=== PATIENT | male | born 1955 | race Caucasian/White ===

== ENCOUNTER 2019-03-06 18:09 | Inpatient (IN) | payer MEDICAID ==
[~2019-03-06] VITALS: Ht 175.3 cm; Wt 90.2 kg
[~2019-03-06 18:09] MED LIST: ARIP10TA8 PO; ASPI-825 PO; ATOR20TA86 PO; BUPR300T53 PO; HYDR25TA PO; LAMO100 PO; METF-960 PO; SERT50TA12 PO; VALS320T2 PO
[2019-03-06] MEDS ORDERED: ACAM333T7 PO (18:34)
[2019-03-06] MEDS ORDERED: GABA-531 PO (18:34)
[2019-03-06] MEDS ORDERED: CYAN500 PO (18:34)
[2019-03-06] MEDS ORDERED: AMLO-511 PO (18:34)
[2019-03-06] MEDS ORDERED: FAMO20 PO (18:34)
[2019-03-06] MEDS ORDERED: TERB250 PO (18:34)
[2019-03-06] MEDS ORDERED: NALT50TA6 PO (18:34)
[2019-03-06] MEDS ORDERED: BENZ1TAB10 PO (18:34)
[2019-03-06] MEDS ORDERED: DISU250 PO (18:34)
[2019-03-06 19:09] LABS: BASOPHILS % (AUTO) 0.9 % (0.0-2.0); EOSINOPHILS % (AUTO) 3.4 % (1.0-6.0); HEMATOCRIT 41.2 % (41-53); HEMOGLOBIN 13.9 g/dL (13.5-17.5); LYMPHOCYTES # (AUTO) 1.8 K/uL (1.0-4.8); LYMPHOCYTES % (AUTO) 27.5 % (22.0-44.0); MEAN CORPUSCULAR HEMOGLOBIN 32.9 pg (26.0-34.0); MEAN CORPUSCULAR HGB CONC 33.9 G/dL (31.0-37.0); MEAN CORPUSCULAR VOLUME 97 fL (80-100); MONOCYTES # (AUTO) 0.6 K/uL (0.1-1.0); MONOCYTES % (AUTO) 9.1 % (2.0-9.0); NEUTROPHILS # (AUTO) 3.9 K/uL (1.8-7.7); NEUTROPHILS % (AUTO) 59.1 % (40.0-70.0); PLATELET COUNT (AUTO) 291 K/uL (150-450); RED BLOOD CELL COUNT(AUTO) 4.24 MIL/uL (4.50-5.90); RED CELL DISTRIBUTION WIDTH 13.8 % (11.5-14.5)
[2019-03-06] MEDS ORDERED: AmLODIPine BESYLATE 5 MG TABLET PO ONE (19:15)
[2019-03-06 19:32] LABS: ANION GAP 9 mmol/L (8-16); CALCIUM, TOTAL 9.2 mg/dL (8.8-10.5); CARBON DIOXIDE 29 mmol/L (22-29); CHLORIDE 104 mmol/L (98-107); CREATININE 1.04 mg/dL (0.60-1.30); GLOMERULAR FILTR. RATE CALC > 60 mL/min (>60); GLUCOSE,RANDOM 126 mg/dL (70-110); POTASSIUM 3.9 mmol/L (3.5-5.1); SODIUM SERUM 142 mmol/L (136-145); UREA NITROGEN, BLOOD 20 mg/dL (7-18)
[2019-03-06 19:38] LABS: ALANINE AMINOTRANSFERASE 27 U/L (12-78); ALBUMIN 3.7 g/dL (3.4-5.0); ALKALINE PHOSPHATASE 104 U/L (46-116); ASPARTATE AMINOTRANSFERASE 24 U/L (15-37); BILIRUBIN,TOTAL 0.4 mg/dL (0.1-1.0); TOTAL PROTEIN, SERUM 7.8 g/dL (6.4-8.2)
[2019-03-06 20:03] LABS: AMPHET/METH SCREEN,URINE NEGATIVE (NEGATIVE); BARBITURATE SCREEN, URINE NEGATIVE (NEGATIVE); BENZODIAZEPINES SCREEN,URINE NEGATIVE (NEGATIVE); CANNABINOID SCREEN,URINE NEGATIVE (NEGATIVE); COCAINE SCREEN,URINE NEGATIVE (NEGATIVE); METHADONE SCREEN, URINE NEGATIVE (NEGATIVE); OPIATE SCREEN,URINE NEGATIVE (NEGATIVE)
[2019-03-06 20:04] LABS: PHENCYCLIDINE SCREEN,URINE NEGATIVE (NEGATIVE)
[2019-03-06] MEDS ORDERED: HALOPERIDOL 5 MG TABLET PO PRN (22:00)
[2019-03-06] MEDS ORDERED: ZOLPIDEM TARTRATE 10 MG TABLET PO PRN (22:00)
[2019-03-06] MEDS ORDERED: LORazepam 2 MG TABLET PO PRN (22:00)
[2019-03-07 02:32] VITALS: BP 151/95
[2019-03-07] MEDS ORDERED: PNEUMOCOCCAL VACCINE POLYVALENT 0.5 ML VIAL [PPSV23] IM ONE (04:15)
[2019-03-07 06:44] LABS: CHOL/HDL RATIO 4.2 (4.2-7.3)
[2019-03-07] MEDS ORDERED: BENZOCAINE/MENTHOL LOZENGE MM PRN (07:30)
[2019-03-07] MEDS ORDERED: MAG HYDROX/AL HYDROX/SIMETH ES 30 ML SUSPENSION UDCUP PO PRN (07:30)
[2019-03-07] MEDS ORDERED: LOPERAMIDE HCL 2 MG CAPSULE PO PRN (07:30)
[2019-03-07] MEDS ORDERED: CloNIDine HCL 0.1 MG TABLET PO PRN (07:30)
[2019-03-07] MEDS ORDERED: ALBUTEROL SULFATE HFA 90 MCG/PUFF 8 GM INHALER IH PRN (07:30)
[2019-03-07] MEDS ORDERED: PETROLATUM,WHITE 28 GM JELLY TP PRN (07:30)
[2019-03-07] MEDS ORDERED: ONDANSETRON HCL 4 MG TABLET PO PRN (07:30)
[2019-03-07] MEDS ORDERED: MAGNESIUM HYDROXIDE SUSPENSION 30 ML UDCUP PO PRN (07:30)
[2019-03-07] MEDS ORDERED: BACITRACIN 28.4 GM OINTMENT TP PRN (07:30)
[2019-03-07] MEDS ORDERED: ACETAMINOPHEN 325 MG TABLET PO PRN (07:30)
[2019-03-07 08:02] VITALS: BP 148/88
[2019-03-07] MEDS: BENZTROPINE MESYLATE 1 MG TABLET PO SCH (09:00)
[2019-03-07] MEDS: DOCUSATE SODIUM 100 MG CAPSULE PO SCH (09:00)
[2019-03-07] MEDS: OMEPRAZOLE 20 MG CAPSULE PO SCH (09:00)
[2019-03-07] MEDS: ARIPiprazole 10 MG TABLET PO SCH (09:00)
[2019-03-07] MEDS: SERTRALINE HCL 50 MG TABLET PO SCH (09:00)
[2019-03-07 16:45] VITALS: BP 154/90
[2019-03-07] MEDS: IBUPROFEN 600 MG TABLET PO PRN (16:47)
[2019-03-07] MEDS ORDERED: DEXTROSE 50%-WATER 25 GM/50 ML SYRINGE IVP PRN (22:15)
[2019-03-08 05:06] VITALS: BP 157/82
[2019-03-08 05:42] LABS: GLUCOMETER DEV NAME(LOC) 3E.I; GLUCOSE,POINT OF CARE 148 MG/DL (70-110)
[2019-03-08] MEDS: INSULIN LISPRO 100 UNITS/ML SQ PRN ×2 (06:39→17:32)
[2019-03-08] MEDS: OMEPRAZOLE 20 MG CAPSULE PO SCH (08:22)
[2019-03-08] MEDS: ARIPiprazole 10 MG TABLET PO SCH (08:23)
[2019-03-08] MEDS: DOCUSATE SODIUM 100 MG CAPSULE PO SCH (08:23)
[2019-03-08] MEDS: SERTRALINE HCL 50 MG TABLET PO SCH (08:23)
[2019-03-08 08:24] VITALS: BP 137/84
[2019-03-08] MEDS: IBUPROFEN 600 MG TABLET PO PRN (08:24)
[2019-03-08 09:09] VITALS: BP 137/84
[2019-03-08 09:24] VITALS: BP 136/86
[2019-03-08 11:08] LABS: GLUCOMETER DEV NAME(LOC) 3E.I; GLUCOSE,POINT OF CARE 136 MG/DL (70-110)
[2019-03-08 16:14] VITALS: BP 134/77
[2019-03-08] MEDS ORDERED: ARIP10TA8 PO (16:53)
[2019-03-08] MEDS ORDERED: SERT50TA12 PO (16:54)
[2019-03-08] MEDS ORDERED: DSS100 PO (16:56)
[2019-03-08] MEDS ORDERED: OMEP20 PO (16:56)
[2019-03-08 17:04] LABS: GLUCOMETER DEV NAME(LOC) 3E.I; GLUCOSE,POINT OF CARE 216 MG/DL (70-110)
== END 2019-03-08 17:46 | disposition home or self-care (01) | DRG 754 ==
LOC: EMS 18:09 → 3EI 23:49
PROVIDERS: ADMIT Psychiatry & Neurology Psychiatry; ATTEND Psychiatry & Neurology Psychiatry
DX: F32.9 Major depressive disorder, single episode, unspecified (principal); E11.9 Type 2 diabetes mellitus without complications; R45.851 Suicidal ideations; E78.00 Pure hypercholesterolemia, unspecified; F41.9 Anxiety disorder, unspecified; G47.00 Insomnia, unspecified; I10 Essential (primary) hypertension; K59.00 Constipation, unspecified; Z56.0 Unemployment, unspecified
CPT/HCPCS: 83036; 93971

== ENCOUNTER 2020-02-27 05:23 | Emergency (ER) | payer MEDICAID ==
[~2020-02-27] VITALS: Ht 175.3 cm; Wt 90.0 kg
[~2020-02-27 05:23] MED LIST changes: -ASPI-825 PO; -ATOR20TA86 PO; -BUPR300T53 PO; +DSS100 PO; -HYDR25TA PO; -LAMO100 PO; -METF-960 PO; +OMEP20 PO; -VALS320T2 PO
[2020-02-27 06:10] LABS: GLUCOSE,POINT OF CARE 147 MG/DL (70-110)
[2020-02-27 06:15] LABS: EOSINOPHILS % (AUTO) 4.5 % (1.0-6.0); HEMATOCRIT 36.6 % (41-53); HEMOGLOBIN 12.6 g/dL (13.5-17.5); LYMPHOCYTES # (AUTO) 2.6 K/uL (1.0-4.8); LYMPHOCYTES % (AUTO) 51.1 % (22.0-44.0); MEAN CORPUSCULAR HEMOGLOBIN 33.3 pg (26.0-34.0); MEAN CORPUSCULAR HGB CONC 34.4 G/dL (31.0-37.0); MEAN CORPUSCULAR VOLUME 97 fL (80-100); MONOCYTES # (AUTO) 0.4 K/uL (0.1-1.0); MONOCYTES % (AUTO) 8.5 % (2.0-9.0); NEUTROPHILS # (AUTO) 1.7 K/uL (1.8-7.7); NEUTROPHILS % (AUTO) 33.9 % (40.0-70.0); PLATELET COUNT (AUTO) 268 K/uL (150-450); RED BLOOD CELL COUNT(AUTO) 3.78 MIL/uL (4.50-5.90); RED CELL DISTRIBUTION WIDTH 13.6 % (11.5-14.5)
[2020-02-27 06:21] LABS: ANION GAP 5 mmol/L (8-16); CALCIUM, TOTAL 8.4 mg/dL (8.8-10.5); CARBON DIOXIDE 32 mmol/L (22-29); CHLORIDE 109 mmol/L (98-107); CREATININE 0.74 mg/dL (0.60-1.30); GLOMERULAR FILTR. RATE CALC > 60 mL/min (>60); GLUCOSE,RANDOM 147 mg/dL (70-110); POTASSIUM 3.7 mmol/L (3.5-5.1); SODIUM SERUM 146 mmol/L (136-145); UREA NITROGEN, BLOOD 14 mg/dL (7-18)
[2020-02-27 06:26] LABS: ALANINE AMINOTRANSFERASE 26 U/L (12-78); ALBUMIN 3.5 g/dL (3.4-5.0); ALKALINE PHOSPHATASE 97 U/L (46-116); ASPARTATE AMINOTRANSFERASE 16 U/L (15-37); BILIRUBIN,TOTAL 0.2 mg/dL (0.1-1.0)
[2020-02-27 09:40] LABS: AMPHET/METH SCREEN,URINE NEGATIVE (NEGATIVE); BARBITURATE SCREEN, URINE NEGATIVE (NEGATIVE); BENZODIAZEPINES SCREEN,URINE NEGATIVE (NEGATIVE); CANNABINOID SCREEN,URINE NEGATIVE (NEGATIVE); COCAINE SCREEN,URINE NEGATIVE (NEGATIVE); METHADONE SCREEN, URINE NEGATIVE (NEGATIVE); OPIATE SCREEN,URINE NEGATIVE (NEGATIVE)
[2020-02-27 09:52] LABS: PHENCYCLIDINE SCREEN,URINE NEGATIVE (NEGATIVE)
[2020-02-27 10:34] VITALS: BP 142/87
== END 2020-02-27 12:04 | disposition home or self-care (01) ==
LOC: EMS 05:23
DX: F32.9 Major depressive disorder, single episode, unspecified (principal); F10.10 Alcohol abuse, uncomplicated; E11.9 Type 2 diabetes mellitus without complications; F17.210 Nicotine dependence, cigarettes, uncomplicated; Y90.7 Blood alcohol level of 200-239 mg/100 ml
CPT/HCPCS: 36415; 80053; 80307; 82962; 85025; 99285; G0480

== ENCOUNTER 2021-02-01 00:31 | Emergency (ER) | payer MEDICAID, MEDICARE ==
[~2021-02-01] VITALS: Ht 175.3 cm; Wt 90.9 kg
[~2021-02-01 00:31] MED LIST changes: +ARIP10TA38 PO; -ARIP10TA8 PO; +SERT-158 PO; -SERT50TA12 PO
[2021-02-01 01:12] LABS: COVID AG,FIA SOURCE NASOPHARYNGEAL
[2021-02-01 01:30] LABS: BASOPHILS % (AUTO) 0.9 % (0.0-2.0); EOSINOPHILS % (AUTO) 3.3 % (1.0-6.0); HEMATOCRIT 43.3 % (41-53); HEMOGLOBIN 14.9 g/dL (13.5-17.5); LYMPHOCYTES # (AUTO) 3.3 K/uL (1.0-4.8); LYMPHOCYTES % (AUTO) 52.4 % (22.0-44.0); MEAN CORPUSCULAR HEMOGLOBIN 33.7 pg (26.0-34.0); MEAN CORPUSCULAR HGB CONC 34.3 G/dL (31.0-37.0); MEAN CORPUSCULAR VOLUME 98 fL (80-100); MONOCYTES # (AUTO) 0.4 K/uL (0.1-1.0); NEUTROPHILS # (AUTO) 2.3 K/uL (1.8-7.7); NEUTROPHILS % (AUTO) 36.4 % (40.0-70.0); PLATELET COUNT (AUTO) 258 K/uL (150-450); RED BLOOD CELL COUNT(AUTO) 4.42 MIL/uL (4.50-5.90); RED CELL DISTRIBUTION WIDTH 13.6 % (11.5-14.5)
[2021-02-01 01:39] LABS: ANION GAP 11 mmol/L (8-16); CALCIUM, TOTAL 8.9 mg/dL (8.8-10.5); CARBON DIOXIDE 28 mmol/L (22-29); CHLORIDE 103 mmol/L (98-107); CREATININE 0.96 mg/dL (0.60-1.30); GLOMERULAR FILTR. RATE CALC > 60 mL/min (>60); GLUCOSE,RANDOM 161 mg/dL (70-110); POTASSIUM 3.7 mmol/L (3.5-5.1); SODIUM SERUM 142 mmol/L (136-145); UREA NITROGEN, BLOOD 14 mg/dL (7-18)
[2021-02-01 01:45] LABS: ALANINE AMINOTRANSFERASE 36 U/L (12-78); ALBUMIN 3.8 g/dL (3.4-5.0); ALKALINE PHOSPHATASE 132 U/L (46-116); ASPARTATE AMINOTRANSFERASE 28 U/L (15-37); BILIRUBIN,TOTAL 0.4 mg/dL (0.1-1.0); TOTAL PROTEIN, SERUM 7.6 g/dL (6.4-8.2)
[2021-02-01 07:30] VITALS: BP 128/84
== END 2021-02-01 08:01 | disposition home or self-care (01) ==
LOC: EMS 00:33
DX: R45.851 Suicidal ideations (principal); F10.129 Alcohol abuse with intoxication, unspecified; E11.9 Type 2 diabetes mellitus without complications; F32.9 Major depressive disorder, single episode, unspecified; Z20.822 Contact with and (suspected) exposure to COVID-19; Y90.7 Blood alcohol level of 200-239 mg/100 ml
CPT/HCPCS: 36415; 80053; 82962; 85025; 87426; 99283; G0480

== ENCOUNTER 2023-01-29 01:10 | Emergency (ER) | payer MEDICARE, MEDICAID ==
[~2023-01-29] VITALS: Ht 177.8 cm; Wt 95.5 kg
[2023-01-29 01:26] VITALS: BP 142/89
[2023-01-29 01:43] LABS: BASOPHILS % (AUTO) 0.8 % (0.0-2.0); EOSINOPHILS % (AUTO) 0.7 % (1.0-6.0); HEMATOCRIT 41.6 % (41-53); HEMOGLOBIN 14.1 g/dL (13.5-17.5); LYMPHOCYTES # (AUTO) 2.1 K/uL (1.0-4.8); LYMPHOCYTES % (AUTO) 24.8 % (22.0-44.0); MEAN CORPUSCULAR HEMOGLOBIN 32.9 pg (26.0-34.0); MEAN CORPUSCULAR VOLUME 97 fL (80-100); MONOCYTES # (AUTO) 0.6 K/uL (0.1-1.0); MONOCYTES % (AUTO) 7.3 % (2.0-9.0); NEUTROPHILS # (AUTO) 5.6 K/uL (1.8-7.7); NEUTROPHILS % (AUTO) 66.4 % (40.0-70.0); PLATELET COUNT (AUTO) 314 K/uL (150-450); RED CELL DISTRIBUTION WIDTH 14.2 % (11.5-14.5)
[2023-01-29 01:52] LABS: ANION GAP 10 mmol/L (8-16); CALCIUM, TOTAL 9.2 mg/dL (8.8-10.5); CARBON DIOXIDE 29 mmol/L (22-29); CHLORIDE 102 mmol/L (98-107); GLOMERULAR FILTR. RATE CALC > 60 mL/min (>60); GLUCOSE,RANDOM 137 mg/dL (70-110); POTASSIUM 3.5 mmol/L (3.5-5.1); SODIUM SERUM 141 mmol/L (136-145); UREA NITROGEN, BLOOD 17 mg/dL (7-18)
[2023-01-29 01:59] LABS: ALANINE AMINOTRANSFERASE 46 U/L (12-78); ALBUMIN 3.9 g/dL (3.4-5.0); ALKALINE PHOSPHATASE 124 U/L (46-116); ASPARTATE AMINOTRANSFERASE 36 U/L (15-37); BILIRUBIN,TOTAL 0.9 mg/dL (0.1-1.0); TOTAL PROTEIN, SERUM 7.8 g/dL (6.4-8.2)
[2023-01-29 03:23] LABS: AMPHET/METH SCREEN,URINE NEGATIVE (NEGATIVE); BARBITURATE SCREEN, URINE NEGATIVE (NEGATIVE); BENZODIAZEPINES SCREEN,URINE NEGATIVE (NEGATIVE); CANNABINOID SCREEN,URINE NEGATIVE (NEGATIVE); COCAINE SCREEN,URINE NEGATIVE (NEGATIVE); METHADONE SCREEN, URINE NEGATIVE (NEGATIVE); OPIATE SCREEN,URINE NEGATIVE (NEGATIVE); PHENCYCLIDINE SCREEN,URINE NEGATIVE (NEGATIVE)
== END 2023-01-29 02:59 | disposition short-term general hospital (02) ==
LOC: EMS 01:14
DX: F32.A Depression, unspecified (principal); E11.9 Type 2 diabetes mellitus without complications; F17.210 Nicotine dependence, cigarettes, uncomplicated; Z91.013 Allergy to seafood
CPT/HCPCS: 99285; 80053; 85025; 36415; 80307 ×2; G0480

== ENCOUNTER 2023-02-28 19:12 | Inpatient (IN) | payer MEDICARE, MEDICAID ==
[~2023-02-28] VITALS: Ht 175.3 cm; Wt 76.5 kg
[2023-02-28] MEDS ORDERED: LAMO25TA25 PO (19:23)
[2023-02-28 22:27] LABS: BASOPHILS % (AUTO) 0.9 % (0.0-2.0); EOSINOPHILS % (AUTO) 0.3 % (1.0-6.0); HEMATOCRIT 40.6 % (41-53); HEMOGLOBIN 13.6 g/dL (13.5-17.5); LYMPHOCYTES # (AUTO) 1.7 K/uL (1.0-4.8); LYMPHOCYTES % (AUTO) 23.7 % (22.0-44.0); MEAN CORPUSCULAR HGB CONC 33.4 G/dL (31.0-37.0); MEAN CORPUSCULAR VOLUME 96 fL (80-100); MONOCYTES # (AUTO) 0.8 K/uL (0.1-1.0); MONOCYTES % (AUTO) 10.8 % (2.0-9.0); NEUTROPHILS # (AUTO) 4.5 K/uL (1.8-7.7); NEUTROPHILS % (AUTO) 64.3 % (40.0-70.0); PLATELET COUNT (AUTO) 284 K/uL (150-450); RED BLOOD CELL COUNT(AUTO) 4.23 MIL/uL (4.50-5.90); RED CELL DISTRIBUTION WIDTH 14.1 % (11.5-14.5)
[2023-02-28 23:06] LABS: ANION GAP 10 mmol/L (8-16); CALCIUM, TOTAL 8.6 mg/dL (8.8-10.5); CARBON DIOXIDE 28 mmol/L (22-29); CHLORIDE 100 mmol/L (98-107); CREATININE 0.84 mg/dL (0.60-1.30); GLOMERULAR FILTR. RATE CALC > 60 mL/min (>60); GLUCOSE,RANDOM 165 mg/dL (70-110); POTASSIUM 3.4 mmol/L (3.5-5.1); SODIUM SERUM 138 mmol/L (136-145)
[2023-02-28 23:10] LABS: AMPHET/METH SCREEN,URINE NEGATIVE (NEGATIVE); BARBITURATE SCREEN, URINE NEGATIVE (NEGATIVE); BENZODIAZEPINES SCREEN,URINE NEGATIVE (NEGATIVE); CANNABINOID SCREEN,URINE NEGATIVE (NEGATIVE); COCAINE SCREEN,URINE NEGATIVE (NEGATIVE); METHADONE SCREEN, URINE NEGATIVE (NEGATIVE); OPIATE SCREEN,URINE NEGATIVE (NEGATIVE); PHENCYCLIDINE SCREEN,URINE NEGATIVE (NEGATIVE)
[2023-02-28 23:12] LABS: ALANINE AMINOTRANSFERASE 39 U/L (12-78); ALBUMIN 3.5 g/dL (3.4-5.0); ALKALINE PHOSPHATASE 116 U/L (46-116); ASPARTATE AMINOTRANSFERASE 27 U/L (15-37); BILIRUBIN,TOTAL 1.2 mg/dL (0.1-1.0); TOTAL PROTEIN, SERUM 7.3 g/dL (6.4-8.2)
[2023-02-28 23:30] LABS: COVID AG,FIA SOURCE NASOPHARYNGEAL
[2023-03-01] MEDS ORDERED: ZOLPIDEM TARTRATE 10 MG TABLET PO PRN (05:00)
[2023-03-01] MEDS ORDERED: HALOPERIDOL 5 MG TABLET PO PRN (05:00)
[2023-03-01] MEDS: LORazepam 2 MG TABLET PO PRN (06:12)
[2023-03-01] MEDS ORDERED: PNEUMOCOCCAL VACCINE POLYVALENT 0.5 ML VIAL [PPSV23] IM. ONE (06:15)
[2023-03-01 06:26] LABS: GLUCOMETER DEV NAME(LOC) BV2S.; GLUCOSE,POINT OF CARE 164 MG/DL (70-110)
[2023-03-01 06:38] VITALS: BP 140/88
[2023-03-01] MEDS: MetFORMIN HCL 500 MG TABLET PO SCH ×2 (07:02→17:46)
[2023-03-01 08:25] VITALS: BP 132/76
[2023-03-01] MEDS: AmLODIPine BESYLATE 5 MG TABLET PO SCH (10:14)
[2023-03-01] MEDS: ARIPiprazole 10 MG TABLET PO SCH (13:45)
[2023-03-01] MEDS: SERTRALINE HCL 50 MG TABLET PO SCH (13:46)
[2023-03-01] MEDS ORDERED: CloNIDine HCL 0.1 MG TABLET PO PRN (15:15)
[2023-03-01] MEDS ORDERED: GuaiFENesin/D-METHORPHAN [SUGAR-FREE] 200-20MG/10 ML SYRUP UDCUP PO PRN (15:15)
[2023-03-01] MEDS ORDERED: ALBUTEROL SULFATE HFA 90 MCG/PUFF 8 GM INHALER IH PRN (15:15)
[2023-03-01] MEDS ORDERED: ONDANSETRON HCL 4 MG TABLET PO PRN (15:15)
[2023-03-01] MEDS ORDERED: MAGNESIUM HYDROXIDE SUSPENSION 30 ML UDCUP PO PRN (15:15)
[2023-03-01] MEDS ORDERED: NICOTINE 14 MG/24 HOUR PATCH TD PRN (15:15)
[2023-03-01] MEDS ORDERED: MAG HYDROX/AL HYDROX/SIMETH ES 30 ML SUSPENSION UDCUP PO PRN (15:15)
[2023-03-01] MEDS ORDERED: IBUPROFEN 400 MG TABLET PO PRN (15:15)
[2023-03-01] MEDS ORDERED: PETROLATUM,WHITE 28 GM JELLY TP PRN (15:15)
[2023-03-01] MEDS ORDERED: ACETAMINOPHEN 325 MG TABLET PO PRN (15:15)
[2023-03-01] MEDS ORDERED: LOPERAMIDE HCL 2 MG CAPSULE PO PRN (15:15)
[2023-03-01] MEDS ORDERED: DOCUSATE SODIUM 100 MG CAPSULE PO PRN (15:15)
[2023-03-01 16:36] LABS: GLUCOMETER DEV NAME(LOC) BV2S.; GLUCOSE,POINT OF CARE 177 MG/DL (70-110)
[2023-03-01] MEDS: LamoTRIgine 25 MG TABLET PO SCH (17:47)
[2023-03-01 21:22] VITALS: BP 143/77
[2023-03-02] MEDS: MetFORMIN HCL 500 MG TABLET PO SCH ×2 (06:20→16:51)
[2023-03-02 07:55] LABS: CHOL/HDL RATIO 3.1 (4.2-7.3); FREE T4 (FREE THYROXINE) 1.01 ng/dL (0.76-1.46); THYROID STIMULATING HORMONE 2.49 uIU/mL (0.36-3.74)
[2023-03-02 07:58] LABS: CARBAMAZEPINE (TEGRETOL) 0.1 mcg/mL (4.0-12.0)
[2023-03-02 09:10] VITALS: BP 139/76
[2023-03-02] MEDS: ARIPiprazole 10 MG TABLET PO SCH (09:22)
[2023-03-02] MEDS: AmLODIPine BESYLATE 5 MG TABLET PO SCH (09:22)
[2023-03-02] MEDS: LamoTRIgine 25 MG TABLET PO SCH ×2 (09:22→16:51)
[2023-03-02] MEDS: SERTRALINE HCL 50 MG TABLET PO SCH (09:23)
[2023-03-02 20:39] VITALS: BP 128/84
[2023-03-03] MEDS: MetFORMIN HCL 500 MG TABLET PO SCH ×2 (06:20→16:54)
[2023-03-03 08:52] VITALS: BP 137/77
[2023-03-03] MEDS: ARIPiprazole 10 MG TABLET PO SCH (08:54)
[2023-03-03] MEDS: AmLODIPine BESYLATE 5 MG TABLET PO SCH (08:54)
[2023-03-03] MEDS: LamoTRIgine 25 MG TABLET PO SCH ×2 (08:54→16:54)
[2023-03-03] MEDS: SERTRALINE HCL 50 MG TABLET PO SCH (08:54)
[2023-03-03] MEDS ORDERED: DOCU-385 PO (18:39)
[2023-03-03 20:57] VITALS: BP 134/79
[2023-03-04] MEDS: MetFORMIN HCL 500 MG TABLET PO SCH ×2 (06:37→17:08)
[2023-03-04] MEDS: ARIPiprazole 10 MG TABLET PO SCH (09:04)
[2023-03-04] MEDS: AmLODIPine BESYLATE 5 MG TABLET PO SCH (09:04)
[2023-03-04] MEDS: SERTRALINE HCL 100 MG TABLET PO SCH (09:05)
[2023-03-04] MEDS: LamoTRIgine 25 MG TABLET PO SCH ×2 (09:05→17:07)
[2023-03-04 09:11] VITALS: BP 121/76
[2023-03-04 20:41] VITALS: BP 125/65
[2023-03-05] MEDS: MetFORMIN HCL 500 MG TABLET PO SCH ×2 (06:51→16:33)
[2023-03-05] MEDS: LamoTRIgine 25 MG TABLET PO SCH ×2 (08:33→16:33)
[2023-03-05] MEDS: ARIPiprazole 10 MG TABLET PO SCH (08:33)
[2023-03-05] MEDS: SERTRALINE HCL 100 MG TABLET PO SCH (08:33)
[2023-03-05] MEDS: AmLODIPine BESYLATE 5 MG TABLET PO SCH (08:34)
[2023-03-05 08:35] VITALS: BP 103/70
[2023-03-05 22:34] VITALS: BP 108/67
[2023-03-06] MEDS: MetFORMIN HCL 500 MG TABLET PO SCH ×2 (06:04→16:54)
[2023-03-06] MEDS: LamoTRIgine 25 MG TABLET PO SCH ×2 (09:21→16:54)
[2023-03-06] MEDS: ARIPiprazole 10 MG TABLET PO SCH (09:21)
[2023-03-06] MEDS: AmLODIPine BESYLATE 5 MG TABLET PO SCH (09:21)
[2023-03-06] MEDS: SERTRALINE HCL 100 MG TABLET PO SCH (09:22)
[2023-03-06 10:00] VITALS: BP 113/72
[2023-03-07 04:10] VITALS: BP 113/71
[2023-03-07] MEDS: MetFORMIN HCL 500 MG TABLET PO SCH ×2 (07:25→16:46)
[2023-03-07] MEDS: ARIPiprazole 10 MG TABLET PO SCH (08:26)
[2023-03-07] MEDS: AmLODIPine BESYLATE 5 MG TABLET PO SCH (08:26)
[2023-03-07] MEDS: SERTRALINE HCL 100 MG TABLET PO SCH (08:26)
[2023-03-07] MEDS: LamoTRIgine 25 MG TABLET PO SCH ×2 (08:26→16:46)
[2023-03-07 09:03] VITALS: BP 140/76
[2023-03-07 21:05] VITALS: BP 133/75
[2023-03-08] MEDS: MetFORMIN HCL 500 MG TABLET PO SCH ×2 (06:30→17:03)
[2023-03-08 08:50] VITALS: BP 125/78
[2023-03-08] MEDS: SERTRALINE HCL 100 MG TABLET PO SCH (09:32)
[2023-03-08] MEDS: AmLODIPine BESYLATE 5 MG TABLET PO SCH (09:32)
[2023-03-08] MEDS: ARIPiprazole 10 MG TABLET PO SCH (09:32)
[2023-03-08] MEDS: LamoTRIgine 25 MG TABLET PO SCH ×2 (09:32→17:03)
[2023-03-08 16:27] VITALS: BP 123/75
[2023-03-08] MEDS: LORazepam 2 MG TABLET PO PRN (16:30)
[2023-03-08 20:29] VITALS: BP 119/70
[2023-03-09] MEDS: MetFORMIN HCL 500 MG TABLET PO SCH ×2 (06:44→17:30)
[2023-03-09 08:40] VITALS: BP 128/72
[2023-03-09] MEDS: SERTRALINE HCL 100 MG TABLET PO SCH (09:40)
[2023-03-09] MEDS: ARIPiprazole 10 MG TABLET PO SCH (09:40)
[2023-03-09] MEDS: LamoTRIgine 25 MG TABLET PO SCH ×2 (09:40→17:30)
[2023-03-09] MEDS: AmLODIPine BESYLATE 5 MG TABLET PO SCH (09:40)
[2023-03-09 20:32] VITALS: BP 133/76
[2023-03-10] MEDS: MetFORMIN HCL 500 MG TABLET PO SCH ×2 (06:20→16:46)
[2023-03-10 08:31] VITALS: BP 106/61
[2023-03-10] MEDS: AmLODIPine BESYLATE 5 MG TABLET PO SCH (09:00)
[2023-03-10] MEDS: LamoTRIgine 25 MG TABLET PO SCH ×2 (09:07→16:46)
[2023-03-10] MEDS: SERTRALINE HCL 100 MG TABLET PO SCH (09:07)
[2023-03-10] MEDS: ARIPiprazole 10 MG TABLET PO SCH (09:07)
[2023-03-10 20:13] VITALS: BP 129/73
[2023-03-11] MEDS: MetFORMIN HCL 500 MG TABLET PO SCH (06:50)
[2023-03-11 08:09] VITALS: BP 127/67
[2023-03-11] MEDS: ARIPiprazole 10 MG TABLET PO SCH (08:34)
[2023-03-11] MEDS: AmLODIPine BESYLATE 5 MG TABLET PO SCH (08:34)
[2023-03-11] MEDS: SERTRALINE HCL 100 MG TABLET PO SCH (08:34)
[2023-03-11] MEDS: LamoTRIgine 25 MG TABLET PO SCH (08:34)
[2023-03-11] MEDS ORDERED: SERT-162 PO (10:05)
[2023-03-11] MEDS ORDERED: LAMO25TA25 PO ×2 (10:06→10:47)
[2023-03-11] MEDS ORDERED: AMLO-257 PO ×2 (10:07→10:47)
[2023-03-11] MEDS ORDERED: METF-1211 PO ×2 (10:08→10:47)
[2023-03-11] MEDS ORDERED: SERT-440 PO (10:47)
[2023-03-11] MEDS ORDERED: ARIP10TA38 PO (10:47)
== END 2023-03-11 12:14 | disposition home or self-care (01) | DRG 751 ==
LOC: EMS 19:13 → B2S 03-01 03:00
PROVIDERS: ADMIT Psychiatry & Neurology Child & Adolescent Psychiatry; ATTEND Psychiatry & Neurology Child & Adolescent Psychiatry
DX: F33.2 Major depressive disorder, recurrent severe without psychotic features (principal); E11.9 Type 2 diabetes mellitus without complications; R45.851 Suicidal ideations; I10 Essential (primary) hypertension; F10.20 Alcohol dependence, uncomplicated; Z20.822 Contact with and (suspected) exposure to COVID-19; E78.5 Hyperlipidemia, unspecified; B18.1 Chronic viral hepatitis B without delta-agent; F20.9 Schizophrenia, unspecified; I25.10 Atherosclerotic heart disease of native coronary artery without angina pectoris; E87.6 Hypokalemia; Z91.013 Allergy to seafood; Z79.899 Other long term (current) drug therapy
CPT/HCPCS: 80053; 80061; 80156; 80307; 82962; 84132; 84439; 84443; 85025; 99285; G0480

== ENCOUNTER 2024-04-14 19:42 | Inpatient (IN) | payer MEDICARE, MEDICAID ==
[~2024-04-14] VITALS: Ht 175.3 cm; Wt 88.0 kg
[~2024-04-14 19:42] MED LIST changes: +AMLO-257 PO; -DSS100 PO; +LAMO25TA36 PO; +METF-1211 PO; -OMEP20 PO; -SERT-158 PO; +SERT-162 PO; +SERT-440 PO
[2024-04-14 20:28] LABS: COVID AG,FIA SOURCE NASAL SWAB
[2024-04-14 20:35] LABS: APPEARANCE,URINE CLEAR (CLEAR); BILIRUBIN,URINE NEGATIVE (NEGATIVE); COLOR,URINE LIGHT YELLOW (YELLOW); GLUCOSE, URINE (UA) NEGATIVE (NEGATIVE); KETONES,URINE NEGATIVE (NEGATIVE); LEUKOCYTE ESTERASE ,URINE NEGATIVE (NEGATIVE); NITRATE,URINE NEGATIVE (NEGATIVE); OCCULT BLOOD,URINE NEGATIVE (NEGATIVE); PROTEIN,URINE NEGATIVE (NEGATIVE); UROBILINOGEN,URINE <=1.0 mg/dL (<=1.0)
[2024-04-14 20:41] LABS: BASOPHILS % (AUTO) 0.7 % (0.0-2.0); EOSINOPHILS % (AUTO) 1.5 % (1.0-6.0); HEMATOCRIT 37.7 % (41-53); HEMOGLOBIN 12.7 g/dL (13.5-17.5); LYMPHOCYTES % (AUTO) 22.9 % (22.0-44.0); MEAN CORPUSCULAR HEMOGLOBIN 32.7 pg (26.0-34.0); MEAN CORPUSCULAR HGB CONC 33.8 G/dL (31.0-37.0); MEAN CORPUSCULAR VOLUME 97 fL (80-100); MONOCYTES # (AUTO) 0.8 K/uL (0.1-1.0); NEUTROPHILS # (AUTO) 5.7 K/uL (1.8-7.7); NEUTROPHILS % (AUTO) 65.9 % (40.0-70.0); PLATELET COUNT (AUTO) 294 K/uL (150-450); RED BLOOD CELL COUNT(AUTO) 3.89 MIL/uL (4.50-5.90); RED CELL DISTRIBUTION WIDTH 13.8 % (11.5-14.5); WHITE BLOOD COUNT (AUTO) 8.6 K/uL (4.5-11.0)
[2024-04-14 20:42] LABS: AMPHET/METH SCREEN,URINE NEGATIVE (NEGATIVE); BARBITURATE SCREEN, URINE NEGATIVE (NEGATIVE); BENZODIAZEPINES SCREEN,URINE NEGATIVE (NEGATIVE); CANNABINOID SCREEN,URINE NEGATIVE (NEGATIVE); COCAINE SCREEN,URINE NEGATIVE (NEGATIVE); METHADONE SCREEN, URINE NEGATIVE (NEGATIVE); OPIATE SCREEN,URINE NEGATIVE (NEGATIVE); PHENCYCLIDINE SCREEN,URINE NEGATIVE (NEGATIVE)
[2024-04-14 20:43] LABS: ALCOHOL, URINE DRUG SCREEN NEGATIVE (NEGATIVE)
[2024-04-14 20:49] LABS: ANION GAP 7 mmol/L (8-16); CARBON DIOXIDE 31 mmol/L (22-29); CHLORIDE 102 mmol/L (98-107); CREATININE 1.05 mg/dL (0.60-1.30); GLOMERULAR FILTR. RATE CALC > 60 mL/min (>60); GLUCOSE,RANDOM 201 mg/dL (70-110); POTASSIUM 3.2 mmol/L (3.5-5.1); SODIUM SERUM 140 mmol/L (136-145); UREA NITROGEN, BLOOD 15 mg/dL (7-18)
[2024-04-14 20:56] LABS: SARS-COV2 (COVID) ANTIGEN,FIA Negative (Negative)
[2024-04-14 20:58] LABS: ALCOHOL, BLOOD (SERUM) < 3 mg/dL (0-10)
[2024-04-15] MEDS: POTASSIUM CHLORIDE 20 MEQ ER TABLET PO ONE (06:03)
[2024-04-15] MEDS: LORazepam 2 MG TABLET PO ONE (06:03)
[2024-04-15] MEDS ORDERED: ACETAMINOPHEN 325 MG TABLET PO PRN (12:15)
[2024-04-15] MEDS ORDERED: MAGNESIUM HYDROXIDE SUSPENSION 30 ML UDCUP PO PRN (12:15)
[2024-04-15] MEDS ORDERED: LORazepam 1 MG TABLET PO PRN (12:15)
[2024-04-15] MEDS ORDERED: GuaiFENesin/D-METHORPHAN [SUGAR-FREE] 200-20MG/10 ML SYRUP UDCUP PO PRN (12:15)
[2024-04-15] MEDS ORDERED: MAG HYDROX/ALUMINUM HYD/SIMETH ES 30 ML SUSPENSION UDCUP PO PRN (12:15)
[2024-04-15] MEDS ORDERED: LOPERAMIDE HCL 2 MG CAPSULE PO PRN (12:15)
[2024-04-15] MEDS ORDERED: TUBERCULIN, PURIFIED PROTEIN DERIVATIVE 5 TU/0.1 ML SYRINGE ID ONE (12:15)
[2024-04-15] MEDS: ARIPiprazole 15 MG TABLET PO SCH (22:05)
[2024-04-15] MEDS: THIAMINE 100 MG TABLET PO SCH (22:05)
[2024-04-15 22:06] VITALS: BP 145/82; PULSE 70; RESP 18; TEMP 98.6; O2SAT 97
[2024-04-16 08:00] VITALS: BP 126/64; PULSE 70; RESP 18; TEMP 98.3; O2SAT 95
[2024-04-16 08:00] LABS: HEMOGLOBIN A1C 8.3 % (3.8-5.6)
[2024-04-16 08:17] LABS: CHOL/HDL RATIO 4.4 (4.2-7.3); THYROID STIMULATING HORMONE 3.69 uIU/mL (0.36-3.74)
[2024-04-16] MEDS ORDERED: GLUCAGON,HUMAN RECOMBINANT 1 MG VIAL IM PRN (08:30)
[2024-04-16] MEDS ORDERED: SERTRALINE HCL 50 MG TABLET PO SCH (09:00)
[2024-04-16] MEDS ORDERED: ARIPiprazole ER SUSPENSION 400 MG PRE-FILLED DUAL CHAMBER SYRINGE IM ONE (09:00)
[2024-04-16 09:07] LABS: FREE T4 (FREE THYROXINE) 1.04 ng/dL (0.76-1.46)
[2024-04-16] MEDS: FOLIC ACID 1 MG TABLET PO SCH (09:11)
[2024-04-16] MEDS: SERTRALINE HCL 50 MG TABLET PO SCH (09:11)
[2024-04-16] MEDS: MULTIVITAMINS WITH MINERALS, THERAPEUTIC TABLET PO SCH (09:11)
[2024-04-16] MEDS: LISINOPRIL 5 MG TABLET PO SCH (09:12)
[2024-04-16] MEDS: ASPIRIN 81 MG CHEWABLE TABLET PO SCH (09:12)
[2024-04-16] MEDS: AmLODIPine BESYLATE 5 MG TABLET PO SCH (09:13)
[2024-04-16] MEDS: ARIPiprazole ER SUSPENSION 400 MG PRE-FILLED DUAL CHAMBER SYRINGE IM ONE (14:42)
[2024-04-16 17:21] LABS: GLUCOMETER DEV NAME(LOC) 3E.I 2; GLUCOSE,POINT OF CARE 153 MG/DL (70-110)
[2024-04-16] MEDS: INSULIN LISPRO 100 UNITS/ML SQ PRN (17:36)
[2024-04-16] MEDS: MetFORMIN HCL 500 MG TABLET PO SCH (17:38)
[2024-04-16] MEDS: ARIPiprazole 10 MG TABLET PO SCH (20:59)
[2024-04-16] MEDS: GABAPENTIN 300 MG CAPSULE PO SCH (20:59)
[2024-04-16 22:14] VITALS: BP 136/75; PULSE 76; RESP 17; TEMP 98.5; O2SAT 96
[2024-04-17] MEDS: GABAPENTIN 300 MG CAPSULE PO PRN (05:15)
[2024-04-17 06:06] LABS: GLUCOMETER DEV NAME(LOC) 3E.I 2; GLUCOSE,POINT OF CARE 167 MG/DL (70-110)
[2024-04-17] MEDS: NALTREXONE HCL 50 MG TABLET PO SCH (08:58)
[2024-04-17] MEDS: SERTRALINE HCL 100 MG TABLET PO SCH (08:59)
[2024-04-17] MEDS: LamoTRIgine 25 MG TABLET PO SCH (09:00)
[2024-04-17] MEDS ORDERED: LamoTRIgine 25 MG TABLET PO SCH (09:00)
[2024-04-17 11:15] VITALS: BP 132/70; PULSE 70; RESP 18; TEMP 98.4; O2SAT 95
[2024-04-17] MEDS ORDERED: SERT-440 PO (12:04)
[2024-04-17] MEDS ORDERED: ARIP10TA38 PO (12:04)
[2024-04-17] MEDS ORDERED: MELA5TAB40 PO (12:04)
[2024-04-17] MEDS ORDERED: ARIP400S3 IM (12:04)
[2024-04-17] MEDS ORDERED: LAMO25TA36 PO (12:04)
[2024-04-17] MEDS ORDERED: GABA-1181 PO (12:04)
[2024-04-17] MEDS ORDERED: NALT50TA33 PO (12:04)
[2024-04-17 17:11] LABS: GLUCOMETER DEV NAME(LOC) 3E.I 2; GLUCOSE,POINT OF CARE 193 MG/DL (70-110)
[2024-04-17 22:17] VITALS: RESP 18
[2024-04-18 06:11] LABS: GLUCOMETER DEV NAME(LOC) 3E.I 2; GLUCOSE,POINT OF CARE 163 MG/DL (70-110)
[2024-04-18] MEDS ORDERED: BISACODYL 5 MG EC TABLET PO PRN (07:00)
[2024-04-18 17:10] LABS: GLUCOMETER DEV NAME(LOC) 3E.I 2; GLUCOSE,POINT OF CARE 193 MG/DL (70-110)
[2024-04-18 17:17] VITALS: BP 126/65; PULSE 66; RESP 18; TEMP 97.7; O2SAT 100
[2024-04-18 20:45] VITALS: BP 114/75; PULSE 72; RESP 18; TEMP 98; O2SAT 96
[2024-04-18] MEDS: ZOLPIDEM TARTRATE 10 MG TABLET PO PRN (21:57)
[2024-04-18] MEDS: HydrOXYzine PAMOATE 50 MG CAPSULE PO PRN (21:57)
[2024-04-19 06:06] LABS: GLUCOMETER DEV NAME(LOC) 3E.I 2; GLUCOSE,POINT OF CARE 163 MG/DL (70-110)
[2024-04-19 07:39] LABS: ANION GAP 10 mmol/L (8-16); CARBON DIOXIDE 27 mmol/L (22-29); CHLORIDE 102 mmol/L (98-107); GLOMERULAR FILTR. RATE CALC > 60 mL/min (>60); GLUCOSE,RANDOM 107 mg/dL (70-110); POTASSIUM 3.5 mmol/L (3.5-5.1); SODIUM SERUM 139 mmol/L (136-145); UREA NITROGEN, BLOOD 16 mg/dL (7-18)
[2024-04-19 10:04] VITALS: BP 121/66; PULSE 66; RESP 18; TEMP 97.7; O2SAT 95
[2024-04-19 11:36] LABS: GLUCOMETER DEV NAME(LOC) 3E.I 2; GLUCOSE,POINT OF CARE 196 MG/DL (70-110)
[2024-04-19 17:21] LABS: GLUCOMETER DEV NAME(LOC) 3E.I 2; GLUCOSE,POINT OF CARE 205 MG/DL (70-110)
[2024-04-19 23:06] VITALS: BP 136/92; PULSE 101; RESP 18; TEMP 97.1; O2SAT 94
[2024-04-20] MEDS: MetFORMIN HCL 500 MG TABLET PO SCH (07:04)
[2024-04-20 08:00] LABS: GLUCOMETER DEV NAME(LOC) 3E.I 2; GLUCOSE,POINT OF CARE 161 MG/DL (70-110)
[2024-04-20] MEDS: SERTRALINE HCL 50 MG TABLET PO SCH (09:29)
[2024-04-20 09:49] VITALS: BP 128/76; PULSE 65; RESP 18; TEMP 98.7; O2SAT 96
[2024-04-20 17:20] LABS: GLUCOMETER DEV NAME(LOC) 3E.I 2; GLUCOSE,POINT OF CARE 198 MG/DL (70-110)
[2024-04-20 21:13] VITALS: BP 132/83; PULSE 64; RESP 18; TEMP 97.8; O2SAT 96
[2024-04-21 06:01] LABS: GLUCOMETER DEV NAME(LOC) 3E.I 2; GLUCOSE,POINT OF CARE 143 MG/DL (70-110)
[2024-04-21 08:30] VITALS: BP 108/71; PULSE 92; RESP 17; TEMP 99; O2SAT 97
[2024-04-21 17:16] LABS: GLUCOMETER DEV NAME(LOC) 3E.I 2; GLUCOSE,POINT OF CARE 154 MG/DL (70-110)
[2024-04-21 20:00] VITALS: BP 97/67; PULSE 62; RESP 18; TEMP 97.5; O2SAT 62
[2024-04-22 06:51] LABS: GLUCOMETER DEV NAME(LOC) 3E.I 2; GLUCOSE,POINT OF CARE 177 MG/DL (70-110)
[2024-04-22 08:07] VITALS: BP 104/64; PULSE 33; RESP 18; TEMP 97.9; O2SAT 96
[2024-04-22 17:35] LABS: GLUCOMETER DEV NAME(LOC) 3E.I 2; GLUCOSE,POINT OF CARE 221 MG/DL (70-110)
[2024-04-22 21:09] VITALS: BP 101/68; RESP 18; O2SAT 95
[2024-04-23 06:35] LABS: GLUCOMETER DEV NAME(LOC) 3E.I 2; GLUCOSE,POINT OF CARE 140 MG/DL (70-110)
[2024-04-23 08:30] VITALS: BP 117/74; PULSE 61; RESP 19; TEMP 98.6; O2SAT 95
[2024-04-23 17:15] LABS: GLUCOMETER DEV NAME(LOC) 3E.I 2; GLUCOSE,POINT OF CARE 218 MG/DL (70-110)
[2024-04-23 21:02] VITALS: BP 112/68; PULSE 61; RESP 18; TEMP 97.1; O2SAT 96
[2024-04-24 06:25] LABS: GLUCOMETER DEV NAME(LOC) 3E.I 2; GLUCOSE,POINT OF CARE 141 MG/DL (70-110)
[2024-04-24 12:41] VITALS: BP 116/76; PULSE 64; RESP 17; TEMP 98.9; O2SAT 97
[2024-04-24 17:26] LABS: GLUCOMETER DEV NAME(LOC) 3E.I 2; GLUCOSE,POINT OF CARE 182 MG/DL (70-110)
[2024-04-24 21:55] VITALS: BP 115/71; PULSE 72; RESP 18; TEMP 97.5
[2024-04-25 05:51] LABS: GLUCOMETER DEV NAME(LOC) 3E.I 2; GLUCOSE,POINT OF CARE 121 MG/DL (70-110)
[2024-04-25 10:17] VITALS: BP 125/69; PULSE 66; RESP 20; TEMP 98.2; O2SAT 97
[2024-04-25 17:15] LABS: GLUCOMETER DEV NAME(LOC) 3E.I 2; GLUCOSE,POINT OF CARE 193 MG/DL (70-110)
[2024-04-25] MEDS: ATORVASTATIN CALCIUM 10 MG TABLET PO SCH (21:34)
[2024-04-25 23:22] VITALS: BP 113/77; PULSE 64; RESP 18; TEMP 98.1; O2SAT 98
[2024-04-26 06:05] LABS: GLUCOMETER DEV NAME(LOC) 3E.I 2; GLUCOSE,POINT OF CARE 127 MG/DL (70-110)
[2024-04-26 08:00] VITALS: BP 133/87; PULSE 89; RESP 18; TEMP 98; O2SAT 97
[2024-04-26] MEDS: OLANZapine 5 MG RAPDIS TABLET PO PRN (15:05)
[2024-04-26 17:45] LABS: GLUCOMETER DEV NAME(LOC) 3E.I 2; GLUCOSE,POINT OF CARE 169 MG/DL (70-110)
[2024-04-26 21:25] VITALS: BP 139/99; PULSE 78; RESP 18; TEMP 97.8; O2SAT 97
[2024-04-27 05:50] LABS: GLUCOMETER DEV NAME(LOC) 3E.I 2; GLUCOSE,POINT OF CARE 125 MG/DL (70-110)
[2024-04-27 09:27] VITALS: BP 125/85; PULSE 65; RESP 18; TEMP 97; O2SAT 98
[2024-04-27 16:50] LABS: GLUCOMETER DEV NAME(LOC) 3E.I 2; GLUCOSE,POINT OF CARE 184 MG/DL (70-110)
[2024-04-27 21:32] VITALS: BP 113/63; PULSE 64; RESP 18; TEMP 98.6; O2SAT 97
[2024-04-28 06:21] LABS: GLUCOMETER DEV NAME(LOC) 3E.I 2; GLUCOSE,POINT OF CARE 144 MG/DL (70-110)
[2024-04-28 09:00] VITALS: BP 122/73; PULSE 68; RESP 17; TEMP 98.8; O2SAT 96
[2024-04-28] MEDS ORDERED: ASPI-1450 PO (09:58)
[2024-04-28] MEDS ORDERED: ATOR10TA PO (09:58)
[2024-04-28] MEDS ORDERED: LISI-892 PO (09:58)
[2024-04-28] MEDS ORDERED: MULT-1303 PO (09:58)
[2024-04-28] MEDS ORDERED: SERT-158 PO (09:58)
[2024-04-28] MEDS ORDERED: AMLO2.5T96 PO (09:58)
[2024-05-14] MEDS ORDERED: ARIPiprazole ER SUSPENSION 400 MG PRE-FILLED DUAL CHAMBER SYRINGE IM SCH ×2 (09:00)
== END 2024-04-28 14:17 | disposition home or self-care (01) | DRG 750 ==
LOC: EMS 19:42 → 3EI 04-15 21:32 → UNDOADMIN 04-15 21:32
PROVIDERS: ADMIT Psychiatry & Neurology Psychiatry; ATTEND Psychiatry & Neurology Psychiatry
PROC: GZHZZZZ Group Psychotherapy (ICD-10-PCS; principal; 2024-04-15)
PROC: GZ58ZZZ Individual Psychotherapy, Cognitive-Behavioral (ICD-10-PCS; 2024-04-15)
PROC: GZ56ZZZ Individual Psychotherapy, Supportive (ICD-10-PCS; 2024-04-15)
DX: F25.1 Schizoaffective disorder, depressive type (principal); B18.1 Chronic viral hepatitis B without delta-agent; E11.22 Type 2 diabetes mellitus with diabetic chronic kidney disease; R45.851 Suicidal ideations; E11.36 Type 2 diabetes mellitus with diabetic cataract; Z91.148 Patient's other noncompliance with medication regimen for other reason; F25.0 Schizoaffective disorder, bipolar type; E78.5 Hyperlipidemia, unspecified; F17.200 Nicotine dependence, unspecified, uncomplicated; I12.9 Hypertensive chronic kidney disease with stage 1 through stage 4 chronic kidney disease, or unspecified chronic kidney disease; N18.9 Chronic kidney disease, unspecified; I25.10 Atherosclerotic heart disease of native coronary artery without angina pectoris; E87.6 Hypokalemia; K59.00 Constipation, unspecified; E11.65 Type 2 diabetes mellitus with hyperglycemia; F33.9 Major depressive disorder, recurrent, unspecified; F41.9 Anxiety disorder, unspecified; G47.00 Insomnia, unspecified; J44.9 Chronic obstructive pulmonary disease, unspecified; Y90.9 Presence of alcohol in blood, level not specified; K21.9 Gastro-esophageal reflux disease without esophagitis; F10.20 Alcohol dependence, uncomplicated; Z55.9 Problems related to education and literacy, unspecified; Z59.00 Homelessness unspecified; Z63.9 Problem related to primary support group, unspecified; Z65.3 Problems related to other legal circumstances; Z79.899 Other long term (current) drug therapy; Z81.8 Family history of other mental and behavioral disorders; Z91.013 Allergy to seafood
CPT/HCPCS: 80048; 80061; 80307; 81003; 82962; 83036; 84132; 84439; 84443; 85025; 86592; 99285; G0480; J0401

== ENCOUNTER 2024-07-19 18:44 | Inpatient (IN) | payer MEDICARE, MEDICAID ==
[~2024-07-19] VITALS: Ht 175.3 cm; Wt 80.7 kg
[~2024-07-19 18:44] MED LIST changes: -AMLO-257 PO; +AMLO2.5T96 PO; +ARIP400S3 IM; +ASPI-1450 PO; +ATOR10TA PO; +GABA-1181 PO; +LISI-892 PO; +MELA5TAB40 PO; +MULT-1303 PO; +NALT50TA33 PO; +SERT-158 PO; -SERT-162 PO
[2024-07-19 19:53] LABS: BASOPHILS % (AUTO) 1.1 % (0.0-2.0); EOSINOPHILS % (AUTO) 3.3 % (1.0-6.0); HEMATOCRIT 43.9 % (41-53); HEMOGLOBIN 14.9 g/dL (13.5-17.5); LYMPHOCYTES # (AUTO) 2.7 K/uL (1.0-4.8); LYMPHOCYTES % (AUTO) 36.3 % (22.0-44.0); MEAN CORPUSCULAR VOLUME 94 fL (80-100); MONOCYTES # (AUTO) 0.4 K/uL (0.1-1.0); MONOCYTES % (AUTO) 5.8 % (2.0-9.0); NEUTROPHILS % (AUTO) 53.5 % (40.0-70.0); PLATELET COUNT (AUTO) 360 K/uL (150-450); RED BLOOD CELL COUNT(AUTO) 4.66 MIL/uL (4.50-5.90); RED CELL DISTRIBUTION WIDTH 14.7 % (11.5-14.5); WHITE BLOOD COUNT (AUTO) 7.4 K/uL (4.5-11.0)
[2024-07-19 20:00] LABS: CARBON DIOXIDE 33 mmol/L (22-29); CREATININE 1.22 mg/dL (0.60-1.30); GLUCOSE,RANDOM 283 mg/dL (70-110); UREA NITROGEN, BLOOD 17 mg/dL (7-18)
[2024-07-19 20:01] LABS: CALCIUM, TOTAL 9.2 mg/dL (8.8-10.5); GLOMERULAR FILTR. RATE CALC 59 mL/min (>60)
[2024-07-19 20:08] LABS: ALCOHOL, BLOOD (SERUM) < 3 mg/dL (0-10)
[2024-07-19 22:07] LABS: MAGNESIUM 1.7 mg/dL (1.80-2.40)
[2024-07-20] MEDS: POTASSIUM CHLORIDE 20 MEQ ER TABLET PO ONE (00:34)
[2024-07-20] MEDS: MAGNESIUM SULFATE 2 GM/WATER 50 ML IV ONE (00:34)
[2024-07-20 01:09] LABS: PH,URINE DRUG SCREEN 6.5 (5.0-8.0)
[2024-07-20 01:16] LABS: AMPHET/METH SCREEN,URINE NEGATIVE (NEGATIVE); BARBITURATE SCREEN, URINE NEGATIVE (NEGATIVE); BENZODIAZEPINES SCREEN,URINE NEGATIVE (NEGATIVE); CANNABINOID SCREEN,URINE NEGATIVE (NEGATIVE); COCAINE SCREEN,URINE NEGATIVE (NEGATIVE); METHADONE SCREEN, URINE NEGATIVE (NEGATIVE); OPIATE SCREEN,URINE NEGATIVE (NEGATIVE); PHENCYCLIDINE SCREEN,URINE NEGATIVE (NEGATIVE)
[2024-07-20 01:17] LABS: ALCOHOL, URINE DRUG SCREEN NEGATIVE (NEGATIVE)
[2024-07-20 01:19] LABS: CREATININE,URINE RANDOM 107.2 mg/dL (30.0-125.0)
[2024-07-20 04:07] LABS: POTASSIUM 3.5 mmol/L (3.5-5.1)
[2024-07-20 05:11] VITALS: BP 134/74; PULSE 53; RESP 20; TEMP 97.6; O2SAT 96
[2024-07-20] MEDS ORDERED: DEXTROSE 50%-WATER 25 GM/50 ML SYRINGE IVP PRN (07:00)
[2024-07-20] MEDS: INSULIN LISPRO 100 UNITS/ML SQ PRN (07:04)
[2024-07-20 08:50] VITALS: BP 111/56; PULSE 68; RESP 18; TEMP 98; O2SAT 97
[2024-07-20 11:41] VITALS: BP 108/64; PULSE 77; RESP 19; TEMP 98.2; O2SAT 100
[2024-07-20] MEDS ORDERED: POTASSIUM CHL 10 MEQ/WATER 50 ML IV PRN (11:45)
[2024-07-20] MEDS ORDERED: MAGNESIUM SULFATE 4 GM/WATER 100 ML IV PRN (11:45)
[2024-07-20] MEDS ORDERED: LORazepam 2 MG/ML VIAL IVP PRN (11:45)
[2024-07-20] MEDS ORDERED: MAGNESIUM OXIDE 400 MG TABLET PO PRN (11:45)
[2024-07-20] MEDS: 1: MAGNESIUM SULFATE 2 GM, MVI, ADULT NO.1 WITH VIT K 10 ML, THIAMINE 100 MG, FOLIC ACID IV SCH (12:44)
[2024-07-20 14:06] LABS: POTASSIUM 3.8 mmol/L (3.5-5.1); SODIUM SERUM 142 mmol/L (136-145)
[2024-07-20 14:07] LABS: ANION GAP 9 mmol/L (8-16); CHLORIDE 100 mmol/L (98-107)
[2024-07-20 16:49] VITALS: BP 119/68; PULSE 64; RESP 18; TEMP 98.5; O2SAT 100
[2024-07-20] MEDS: MetFORMIN HCL 500 MG TABLET PO SCH (18:35)
[2024-07-20 19:19] VITALS: BP 129/72; PULSE 63; RESP 18; TEMP 97.8; O2SAT 95
[2024-07-20] MEDS: ARIPiprazole 10 MG TABLET PO SCH (20:44)
[2024-07-20] MEDS: ATORVASTATIN CALCIUM 10 MG TABLET PO SCH (20:45)
[2024-07-20] MEDS: GABAPENTIN 300 MG CAPSULE PO SCH (20:46)
[2024-07-21 00:46] VITALS: BP 136/72; PULSE 68; RESP 18; TEMP 98; O2SAT 97
[2024-07-21] MEDS ORDERED: SODIUM CHLORIDE 0.9% 1,000 ML ONE (02:17)
[2024-07-21 04:32] VITALS: BP 107/67; PULSE 60; RESP 18; TEMP 98.3; O2SAT 95
[2024-07-21 07:15] VITALS: BP 130/72; PULSE 60; RESP 19; TEMP 98.2; O2SAT 98
[2024-07-21 07:19] LABS: BASOPHILS % (AUTO) 0.4 % (0.0-2.0); EOSINOPHILS % (AUTO) 4.9 % (1.0-6.0); HEMOGLOBIN 14.1 g/dL (13.5-17.5); LYMPHOCYTES % (AUTO) 42.2 % (22.0-44.0); MEAN CORPUSCULAR HEMOGLOBIN 31.8 pg (26.0-34.0); MEAN CORPUSCULAR HGB CONC 33.6 G/dL (31.0-37.0); MEAN CORPUSCULAR VOLUME 95 fL (80-100); MONOCYTES # (AUTO) 0.4 K/uL (0.1-1.0); MONOCYTES % (AUTO) 6.2 % (2.0-9.0); NEUTROPHILS # (AUTO) 3.3 K/uL (1.8-7.7); NEUTROPHILS % (AUTO) 46.3 % (40.0-70.0); PLATELET COUNT (AUTO) 313 K/uL (150-450); RED BLOOD CELL COUNT(AUTO) 4.44 MIL/uL (4.50-5.90); RED CELL DISTRIBUTION WIDTH 14.6 % (11.5-14.5); WHITE BLOOD COUNT (AUTO) 7.1 K/uL (4.5-11.0)
[2024-07-21 07:26] LABS: CHLORIDE 104 mmol/L (98-107); POTASSIUM 3.4 mmol/L (3.5-5.1); SODIUM SERUM 139 mmol/L (136-145)
[2024-07-21 07:38] LABS: ANION GAP 10 mmol/L (8-16); CALCIUM, TOTAL 8.3 mg/dL (8.8-10.5); CARBON DIOXIDE 25 mmol/L (22-29); CREATININE 0.79 mg/dL (0.60-1.30); GLOMERULAR FILTR. RATE CALC > 60 mL/min (>60); GLUCOSE,RANDOM 152 mg/dL (70-110); UREA NITROGEN, BLOOD 12 mg/dL (7-18)
[2024-07-21] MEDS: LamoTRIgine 25 MG TABLET PO SCH (08:28)
[2024-07-21] MEDS: LISINOPRIL 5 MG TABLET PO SCH (08:28)
[2024-07-21] MEDS: SERTRALINE HCL 100 MG TABLET PO SCH (08:28)
[2024-07-21] MEDS: ASPIRIN 81 MG CHEWABLE TABLET PO SCH (08:29)
[2024-07-21] MEDS: POTASSIUM CHLORIDE 20 MEQ ER TABLET PO PRN (08:31)
[2024-07-21] MEDS: MAGNESIUM SULFATE 2 GM/WATER 50 ML IV PRN (11:20)
[2024-07-21 11:58] VITALS: BP 129/85; PULSE 63; RESP 18; TEMP 98.1; O2SAT 98
[2024-07-21 12:31] LABS: GLUCOMETER DEV NAME(LOC) 5N.1D; GLUCOSE,POINT OF CARE 175 MG/DL (70-110)
[2024-07-21 12:31] LABS: GLUCOMETER DEV NAME(LOC) 5N.1D; GLUCOSE,POINT OF CARE 396 MG/DL (70-110)
[2024-07-21 12:31] LABS: GLUCOMETER DEV NAME(LOC) 5N.1D; GLUCOSE,POINT OF CARE 124 MG/DL (70-110)
[2024-07-21 12:31] LABS: GLUCOMETER DEV NAME(LOC) 5N.1D; GLUCOSE,POINT OF CARE 215 MG/DL (70-110)
[2024-07-21 12:31] LABS: GLUCOMETER DEV NAME(LOC) 5N.1D; GLUCOSE,POINT OF CARE 310 MG/DL (70-110)
[2024-07-21 16:15] VITALS: BP 124/75; PULSE 63; RESP 19; TEMP 98; O2SAT 97
[2024-07-21 19:33] VITALS: BP 126/64; PULSE 76; RESP 19; TEMP 97.7; O2SAT 96
[2024-07-22 04:57] VITALS: BP 120/66; PULSE 58; RESP 19; TEMP 97.7; O2SAT 95
[2024-07-22] MEDS ORDERED: SODIUM CHLORIDE 0.9% 1,000 ML ONE (05:11)
[2024-07-22 06:35] LABS: GLUCOMETER DEV NAME(LOC) 5S.1C; GLUCOSE,POINT OF CARE 213 MG/DL (70-110)
[2024-07-22 07:07] LABS: BASOPHILS % (AUTO) 0.9 % (0.0-2.0); EOSINOPHILS % (AUTO) 4.3 % (1.0-6.0); HEMATOCRIT 39.7 % (41-53); HEMOGLOBIN 13.4 g/dL (13.5-17.5); LYMPHOCYTES # (AUTO) 2.8 K/uL (1.0-4.8); MEAN CORPUSCULAR HEMOGLOBIN 31.9 pg (26.0-34.0); MEAN CORPUSCULAR HGB CONC 33.8 G/dL (31.0-37.0); MEAN CORPUSCULAR VOLUME 94 fL (80-100); MONOCYTES # (AUTO) 0.4 K/uL (0.1-1.0); NEUTROPHILS # (AUTO) 2.9 K/uL (1.8-7.7); NEUTROPHILS % (AUTO) 44.8 % (40.0-70.0); PLATELET COUNT (AUTO) 312 K/uL (150-450); RED CELL DISTRIBUTION WIDTH 14.5 % (11.5-14.5); WHITE BLOOD COUNT (AUTO) 6.4 K/uL (4.5-11.0)
[2024-07-22 07:24] VITALS: BP 126/77; PULSE 58; RESP 18; TEMP 98; O2SAT 98
[2024-07-22 07:30] LABS: CALCIUM, TOTAL 8.4 mg/dL (8.8-10.5); CARBON DIOXIDE 24 mmol/L (22-29); CREATININE 0.81 mg/dL (0.60-1.30); GLOMERULAR FILTR. RATE CALC > 60 mL/min (>60); GLUCOSE,RANDOM 161 mg/dL (70-110); UREA NITROGEN, BLOOD 5 mg/dL (7-18)
[2024-07-22 07:47] LABS: ANION GAP 8 mmol/L (8-16); CHLORIDE 105 mmol/L (98-107); POTASSIUM 3.7 mmol/L (3.5-5.1); SODIUM SERUM 137 mmol/L (136-145)
[2024-07-22 10:58] VITALS: BP 130/68; PULSE 76; RESP 19; TEMP 98.1; O2SAT 98
[2024-07-22 15:19] VITALS: BP 126/73; PULSE 62; RESP 18; TEMP 98; O2SAT 97
[2024-07-22 19:15] VITALS: BP 150/85; PULSE 60; RESP 18; TEMP 98; O2SAT 98
[2024-07-22 20:16] LABS: GLUCOMETER DEV NAME(LOC) 5N.1D; GLUCOSE,POINT OF CARE 154 MG/DL (70-110)
[2024-07-22 20:16] LABS: GLUCOMETER DEV NAME(LOC) 5N.1D; GLUCOSE,POINT OF CARE 185 MG/DL (70-110)
[2024-07-22 20:16] LABS: GLUCOMETER DEV NAME(LOC) 5N.1D; GLUCOSE,POINT OF CARE 189 MG/DL (70-110)
[2024-07-22 20:16] LABS: GLUCOMETER DEV NAME(LOC) 5N.1D; GLUCOSE,POINT OF CARE 165 MG/DL (70-110)
[2024-07-22 23:10] VITALS: BP 127/66; PULSE 55; RESP 18; TEMP 98.2; O2SAT 95
[2024-07-23 03:40] VITALS: BP 135/82; PULSE 60; RESP 18; TEMP 97.8; O2SAT 96
[2024-07-23 07:42] VITALS: BP 107/67; RESP 18; TEMP 98; O2SAT 95
[2024-07-23 11:29] VITALS: BP 151/87; PULSE 56; RESP 18; TEMP 97.8; O2SAT 96
[2024-07-23 15:59] VITALS: BP 133/68; PULSE 56; RESP 18; TEMP 98; O2SAT 97
[2024-07-23 19:48] VITALS: BP 119/72; PULSE 58; RESP 18; TEMP 97.7; O2SAT 95
[2024-07-23 22:03] LABS: COVID AG,FIA SOURCE NASAL SWAB
[2024-07-23 22:22] LABS: SARS-COV2 (COVID) ANTIGEN,FIA Negative (Negative)
[2024-07-23] MEDS ORDERED: ARIP10TA38 PO (23:41)
[2024-07-23 23:52] VITALS: BP 100/58; PULSE 62; RESP 17; TEMP 98.3; O2SAT 96
[2024-07-24 07:00] LABS: GLUCOMETER DEV NAME(LOC) 3E.I 2; GLUCOSE,POINT OF CARE 108 MG/DL (70-110)
[2024-07-26 03:12] LABS: GLUCOMETER DEV NAME(LOC) 5N.2C; GLUCOSE,POINT OF CARE 218 MG/DL (70-110)
[2024-07-26 03:13] LABS: GLUCOMETER DEV NAME(LOC) 5N.2C; GLUCOSE,POINT OF CARE 130 MG/DL (70-110)
[2024-07-26 03:13] LABS: GLUCOMETER DEV NAME(LOC) 5S.1C; GLUCOSE,POINT OF CARE 151 MG/DL (70-110)
[2024-07-26 03:13] LABS: GLUCOMETER DEV NAME(LOC) 5S.1C; GLUCOSE,POINT OF CARE 191 MG/DL (70-110)
[2024-07-26 03:13] LABS: GLUCOMETER DEV NAME(LOC) 5S.1C; GLUCOSE,POINT OF CARE 151 MG/DL (70-110)
== END 2024-07-24 00:10 | DRG 426 ==
LOC: EMS 18:44 → EDH 07-20 03:27 → 5S 07-20 05:00 → UNDODISIN 07-22 18:00 → 5S 07-23 04:07
PROVIDERS: ADMIT Internal Medicine; ATTEND Internal Medicine
PROC: GZ56ZZZ Individual Psychotherapy, Supportive (ICD-10-PCS; principal; 2024-07-22)
DX: E87.1 Hypo-osmolality and hyponatremia (principal); R45.851 Suicidal ideations; E11.9 Type 2 diabetes mellitus without complications; E78.5 Hyperlipidemia, unspecified; F20.9 Schizophrenia, unspecified; F32.9 Major depressive disorder, single episode, unspecified; E83.42 Hypomagnesemia; I10 Essential (primary) hypertension; F10.10 Alcohol abuse, uncomplicated; E87.6 Hypokalemia; Z20.822 Contact with and (suspected) exposure to COVID-19; Y90.0 Blood alcohol level of less than 20 mg/100 ml; Z79.899 Other long term (current) drug therapy
CPT/HCPCS: 80048; 80307; 82040; 82570; 82962; 83735; 83930; 83935; 84132; 84295; 84300; 85025; 97162; 99285; G0378; G0480; J3411; J3475; J3490; J7030

== ENCOUNTER 2024-07-23 17:15 | Inpatient (IN) | payer MEDICARE, MEDICAID ==
[~2024-07-23] VITALS: Ht 172.7 cm; Wt 88.0 kg
[~2024-07-23 17:15] MED LIST changes: -AMLO2.5T96 PO; -ARIP10TA38 PO; -ARIP400S3 IM; -LISI-892 PO; -MELA5TAB40 PO; -MULT-1303 PO; -NALT50TA33 PO; -SERT-158 PO
[2024-07-23] MEDS ORDERED: HALOPERIDOL 5 MG TABLET PO PRN (22:45)
[2024-07-23] MEDS ORDERED: ARIP10TA38 PO (23:41)
[2024-07-24 01:20] VITALS: BP 109/53; PULSE 64; RESP 19; TEMP 98.5; O2SAT 96
[2024-07-24] MEDS ORDERED: DEXTROSE 50%-WATER 25 GM/50 ML SYRINGE IVP PRN (01:30)
[2024-07-24] MEDS ORDERED: PNEUMOCOCCAL VACCINE POLYVALENT 0.5 ML SYRINGE [PPSV23] IM. ONE (02:30)
[2024-07-24] MEDS ORDERED: INFLUENZA VIRUS VACCINE TVS (6MO+) 2024-25/PF 45 MCG/0.5 ML SYRINGE IM. ONE (02:30)
[2024-07-24] MEDS ORDERED: IBUPROFEN 400 MG TABLET PO PRN (06:45)
[2024-07-24] MEDS ORDERED: MAG HYDROX/ALUMINUM HYD/SIMETH ES 30 ML SUSPENSION UDCUP PO PRN (06:45)
[2024-07-24] MEDS ORDERED: DOCUSATE SODIUM 100 MG CAPSULE PO PRN (06:45)
[2024-07-24] MEDS ORDERED: PETROLATUM,WHITE 28 GM JELLY TP PRN (06:45)
[2024-07-24] MEDS ORDERED: GuaiFENesin/D-METHORPHAN [SUGAR-FREE] 200-20MG/10 ML SYRUP UDCUP PO PRN (06:45)
[2024-07-24] MEDS ORDERED: MAGNESIUM HYDROXIDE SUSPENSION 30 ML UDCUP PO PRN (06:45)
[2024-07-24] MEDS ORDERED: ONDANSETRON 4 MG TABLET PO PRN (06:45)
[2024-07-24] MEDS ORDERED: ALBUTEROL SULFATE HFA 90 MCG/PUFF 8 GM INHALER IH PRN (06:45)
[2024-07-24] MEDS ORDERED: LOPERAMIDE HCL 2 MG CAPSULE PO PRN (06:45)
[2024-07-24] MEDS ORDERED: ACETAMINOPHEN 325 MG TABLET PO PRN (06:45)
[2024-07-24] MEDS ORDERED: NICOTINE 14 MG/24 HOUR PATCH TD PRN (06:45)
[2024-07-24] MEDS ORDERED: CloNIDine HCL 0.1 MG TABLET PO PRN (06:45)
[2024-07-24] MEDS: INSULIN LISPRO 100 UNITS/ML SQ PRN (07:20)
[2024-07-24 09:55] VITALS: BP 124/64; PULSE 64; RESP 18; TEMP 98.9; O2SAT 96
[2024-07-24] MEDS: GABAPENTIN 300 MG CAPSULE PO SCH (21:53)
[2024-07-24] MEDS: ZOLPIDEM TARTRATE 10 MG TABLET PO PRN (21:53)
[2024-07-24] MEDS: ARIPiprazole 10 MG TABLET PO SCH (21:53)
[2024-07-24 22:29] VITALS: BP 127/71; PULSE 58; RESP 18; TEMP 98; O2SAT 96
[2024-07-25 06:45] LABS: GLUCOMETER DEV NAME(LOC) 3E.I 2; GLUCOSE,POINT OF CARE 165 MG/DL (70-110)
[2024-07-25 07:13] LABS: BASOPHILS % (AUTO) 1.1 % (0.0-2.0); EOSINOPHILS % (AUTO) 4.2 % (1.0-6.0); HEMATOCRIT 44.5 % (41-53); LYMPHOCYTES # (AUTO) 2.4 K/uL (1.0-4.8); LYMPHOCYTES % (AUTO) 29.3 % (22.0-44.0); MEAN CORPUSCULAR HEMOGLOBIN 31.7 pg (26.0-34.0); MEAN CORPUSCULAR HGB CONC 33.7 G/dL (31.0-37.0); MEAN CORPUSCULAR VOLUME 94 fL (80-100); MONOCYTES # (AUTO) 0.6 K/uL (0.1-1.0); MONOCYTES % (AUTO) 7.9 % (2.0-9.0); NEUTROPHILS # (AUTO) 4.7 K/uL (1.8-7.7); NEUTROPHILS % (AUTO) 57.5 % (40.0-70.0); PLATELET COUNT (AUTO) 292 K/uL (150-450); RED BLOOD CELL COUNT(AUTO) 4.74 MIL/uL (4.50-5.90); RED CELL DISTRIBUTION WIDTH 14.8 % (11.5-14.5); WHITE BLOOD COUNT (AUTO) 8.2 K/uL (4.5-11.0)
[2024-07-25 07:20] LABS: HEMOGLOBIN A1C 8.4 % (3.8-5.6)
[2024-07-25 07:39] LABS: ALANINE AMINOTRANSFERASE 13 U/L (12-78); ALBUMIN 3.3 g/dL (3.4-5.0); ALKALINE PHOSPHATASE 97 U/L (46-116); ANION GAP 7 mmol/L (8-16); ASPARTATE AMINOTRANSFERASE 15 U/L (15-37); BILIRUBIN,TOTAL 0.4 mg/dL (0.1-1.0); CARBON DIOXIDE 27 mmol/L (22-29); CHLORIDE 103 mmol/L (98-107); CREATININE 0.94 mg/dL (0.60-1.30); GLOMERULAR FILTR. RATE CALC > 60 mL/min (>60); GLUCOSE,RANDOM 168 mg/dL (70-110); POTASSIUM 4.2 mmol/L (3.5-5.1); SODIUM SERUM 137 mmol/L (136-145); UREA NITROGEN, BLOOD 14 mg/dL (7-18)
[2024-07-25 08:02] LABS: CHOL/HDL RATIO 3.5 (4.2-7.3); CHOLESTEROL 163 mg/dL (131-200); HDL CHOLESTEROL 46 mg/dL (40-60); LDL CHOL (CALC.) 75 mg/dL (0-130); TRIGLYCERIDES 212 mg/dL (15-150)
[2024-07-25 08:24] LABS: THYROID STIMULATING HORMONE 5.02 uIU/mL (0.36-3.74)
[2024-07-25] MEDS ORDERED: DOCUSATE SODIUM 100 MG CAPSULE PO PRN (09:15)
[2024-07-25] MEDS ORDERED: GuaiFENesin/D-METHORPHAN [SUGAR-FREE] 200-20MG/10 ML SYRUP UDCUP PO PRN (09:15)
[2024-07-25] MEDS ORDERED: IBUPROFEN 400 MG TABLET PO PRN (09:15)
[2024-07-25] MEDS ORDERED: ALBUTEROL SULFATE HFA 90 MCG/PUFF 8 GM INHALER IH PRN (09:15)
[2024-07-25] MEDS ORDERED: ONDANSETRON 4 MG TABLET PO PRN (09:15)
[2024-07-25] MEDS ORDERED: LOPERAMIDE HCL 2 MG CAPSULE PO PRN (09:15)
[2024-07-25] MEDS ORDERED: NICOTINE 14 MG/24 HOUR PATCH TD PRN (09:15)
[2024-07-25] MEDS ORDERED: PETROLATUM,WHITE 28 GM JELLY TP PRN (09:15)
[2024-07-25] MEDS ORDERED: CloNIDine HCL 0.1 MG TABLET PO PRN (09:15)
[2024-07-25] MEDS ORDERED: ACETAMINOPHEN 325 MG TABLET PO PRN (09:15)
[2024-07-25] MEDS ORDERED: MAGNESIUM HYDROXIDE SUSPENSION 30 ML UDCUP PO PRN (09:15)
[2024-07-25 09:28] VITALS: BP 100/55; PULSE 61; RESP 17; TEMP 98.3; O2SAT 95
[2024-07-25] MEDS: LamoTRIgine 25 MG TABLET PO SCH (11:44)
[2024-07-25] MEDS: SERTRALINE HCL 100 MG TABLET PO SCH (11:45)
[2024-07-25] MEDS: ETHYL ALCOHOL 62% ANTISEPTIC NASAL SANITIZER 0.6 ML AMPUL NASAL SCH (11:48)
[2024-07-25 17:01] LABS: GLUCOMETER DEV NAME(LOC) 3E.I 2; GLUCOSE,POINT OF CARE 150 MG/DL (70-110)
[2024-07-25] MEDS: LORazepam 2 MG TABLET PO PRN (22:36)
[2024-07-25 23:30] VITALS: RESP 18
[2024-07-26 06:36] LABS: GLUCOMETER DEV NAME(LOC) 3E.I 2; GLUCOSE,POINT OF CARE 152 MG/DL (70-110)
[2024-07-26 06:41] LABS: HEMOGLOBIN A1C 8.2 % (3.8-5.6)
[2024-07-26 07:53] LABS: THYROID STIMULATING HORMONE 2.76 uIU/mL (0.36-3.74)
[2024-07-26 10:01] VITALS: BP 106/63; PULSE 76; RESP 18; TEMP 98.4; O2SAT 95
[2024-07-26] MEDS: MetFORMIN HCL 500 MG TABLET PO SCH (16:15)
[2024-07-26 17:01] LABS: GLUCOMETER DEV NAME(LOC) 3E.I 2; GLUCOSE,POINT OF CARE 256 MG/DL (70-110)
[2024-07-26 21:41] VITALS: BP 138/67; PULSE 66; RESP 18; TEMP 97.4; O2SAT 98
[2024-07-27 05:41] LABS: GLUCOMETER DEV NAME(LOC) 3E.I 2; GLUCOSE,POINT OF CARE 145 MG/DL (70-110)
[2024-07-27 08:30] VITALS: BP 124/74; PULSE 64; RESP 18; TEMP 98.7; O2SAT 98
[2024-07-27] MEDS: MAG HYDROX/ALUMINUM HYD/SIMETH ES 30 ML SUSPENSION UDCUP PO PRN (10:19)
[2024-07-27 17:21] LABS: GLUCOMETER DEV NAME(LOC) 3E.I 2; GLUCOSE,POINT OF CARE 185 MG/DL (70-110)
[2024-07-27 21:42] VITALS: BP 117/74; PULSE 66; RESP 18; TEMP 97.4; O2SAT 98
[2024-07-28 05:56] LABS: GLUCOMETER DEV NAME(LOC) 3E.I 2; GLUCOSE,POINT OF CARE 154 MG/DL (70-110)
[2024-07-28 07:57] LABS: CHOL/HDL RATIO 4.1 (4.2-7.3)
[2024-07-28 09:10] VITALS: BP 122/67; PULSE 61; RESP 18; TEMP 98.4; O2SAT 96
[2024-07-28 16:35] LABS: GLUCOMETER DEV NAME(LOC) 3E.I 2; GLUCOSE,POINT OF CARE 267 MG/DL (70-110)
[2024-07-28 20:47] VITALS: BP 105/65; PULSE 67; RESP 18; TEMP 98; O2SAT 98
[2024-07-29 06:11] LABS: GLUCOMETER DEV NAME(LOC) 3E.I 2; GLUCOSE,POINT OF CARE 162 MG/DL (70-110)
[2024-07-29 11:03] VITALS: BP 133/76; PULSE 80; RESP 17; TEMP 97.7; O2SAT 97
[2024-07-29 16:55] LABS: GLUCOMETER DEV NAME(LOC) 3E.I 2; GLUCOSE,POINT OF CARE 173 MG/DL (70-110)
[2024-07-29 21:28] VITALS: RESP 18
[2024-07-30 05:41] LABS: GLUCOMETER DEV NAME(LOC) 3E.I 2; GLUCOSE,POINT OF CARE 176 MG/DL (70-110)
[2024-07-30 10:36] VITALS: BP 103/59; PULSE 62; RESP 18; TEMP 97.8; O2SAT 96
[2024-07-30 16:51] LABS: GLUCOMETER DEV NAME(LOC) 3E.I 2; GLUCOSE,POINT OF CARE 205 MG/DL (70-110)
[2024-07-30 21:15] VITALS: BP 127/82; PULSE 65; RESP 18; TEMP 97.3; O2SAT 97
[2024-07-31 07:01] LABS: GLUCOMETER DEV NAME(LOC) 3E.I 2; GLUCOSE,POINT OF CARE 169 MG/DL (70-110)
[2024-07-31 09:13] VITALS: BP 116/67; PULSE 65; RESP 18; TEMP 97.6; O2SAT 96
[2024-07-31] MEDS ORDERED: GABA-1181 PO (12:21)
[2024-07-31] MEDS ORDERED: LAMO25TA36 PO (12:24)
[2024-07-31] MEDS ORDERED: SERT-162 PO (12:27)
[2024-07-31 17:30] LABS: GLUCOMETER DEV NAME(LOC) 3E.I 2; GLUCOSE,POINT OF CARE 210 MG/DL (70-110)
== END 2024-07-31 18:59 | disposition home or self-care (01) | DRG 750 ==
LOC: 3EI 07-24 00:23
PROVIDERS: ADMIT Psychiatry & Neurology Child & Adolescent Psychiatry; ATTEND Psychiatry & Neurology Child & Adolescent Psychiatry
PROC: GZ52ZZZ Individual Psychotherapy, Cognitive (ICD-10-PCS; principal; 2024-07-24)
PROC: GZ56ZZZ Individual Psychotherapy, Supportive (ICD-10-PCS; 2024-07-24)
PROC: GZHZZZZ Group Psychotherapy (ICD-10-PCS; 2024-07-24)
DX: F25.1 Schizoaffective disorder, depressive type (principal); R45.851 Suicidal ideations; E11.9 Type 2 diabetes mellitus without complications; E78.5 Hyperlipidemia, unspecified; I10 Essential (primary) hypertension; F10.10 Alcohol abuse, uncomplicated; Y90.9 Presence of alcohol in blood, level not specified; Z91.013 Allergy to seafood; Z79.899 Other long term (current) drug therapy
CPT/HCPCS: 80053; 80061; 82962; 83036; 84443; 85025; 87081